=== PATIENT | male | born 1970 | race African-American/Black ===

== ENCOUNTER 2024-08-22 08:16 | Inpatient (IN) | payer MEDICAID ==
[~2024-08-22] VITALS: Ht 190.5 cm; Wt 111.3 kg
[2024-08-22] VITALS (9 sets, daily range): BP systolic 131–151; BP diastolic 98–119; PULSE 65–95; RESP 14–25; TEMP 97.3–97.7; O2SAT 92–98
--- NOTE | 2024-08-22 08:42 | ED.PDOC ---
SOB-HPI HPI Comments 53 year old male presents to the ED with a chief complaint of shortness of breath onset 1 month. PMHx HTN, not on any medication. Patient states he has been experiencing shortness of breath for the past month, worse when laying down. Last night patient began experiencing chest tightness, radiates to back as well as sweats, cough with green phlegm. Was seen at Dr[facility] walk in clinic in February 2024, was diagnosed with HTN, given medication with no refill. Denies nausea, vomiting, diarrhea, headache, cough, congestion, dizziness. No other symptoms or other modifying factors present at this time. Chief Complaint: Shortness of Breath Time Seen by MD: 08:40 Reviewed notes: Medications, Allergies Information Source: Patient Mode of Arrival: Ambulatory Severity: Moderate Timing: Months Duration: Since onset Context: At Rest PE Risk Factors: None History of: None Prehospital treatment: None Modifying Factors: Nothing Associated Signs and Symptoms: Chest Pain Quality: Tightness Radiation: Back Location: Chest (L) If cough with SOB: Productive, Green Past Medical History PAST MEDICAL HISTORY: HTN Surgical History: Denies all surgeries Family History Family History: Reviewed,noncontributory to illness, No family hx of Cancer, No family hx of DM, No family hx of Heart isaias, No family hx of HTN, No family hx ofKidney isaias, No family hx of Liver isaias, No family hx of Lung isaias, No family hx of Stroke Social History Smoker: Quit Less Than 1 Year, Cigarettes Alcohol: Denies ETOH Use Drugs: Denies Drug Use Lives In: Home Constitutional: reports: sweats; denies: chills, diaphoresis, fatigue, fever, malaise, weakness, others EENTM: denies: blurred vision, double vision, ear bleeding, ear discharge, ear drainage, ear pain, ear ringing, eye pain, eye redness, hearing loss, mouth pain, mouth swelling, nasal discharge, nose bleeding, nose congestion, nose pain, photophobia, tearing, throat pain, throat swelling, voice changes, others Respiratory: reports: cough, shortness of breath; denies: hemoptysis, orthopnea, SOB at rest, SOB with excertion, stridor, wheezing, others Cardiovascular: reports: chest pain; denies: dizzy spells, diaphoresis, Dyspnea on exertion, edema, irregular heart beat, left arm pain, lightheadedness, palpitations, PND, syncope, others Gastrointestinal: denies: abdomen distended, abdominal pain, blood streaked bowels, constipated, diarrhea, dysphagia, difficulty swallowing, hematemesis, melena, nausea, poor appetite, poor fluid intake, rectal bleeding, rectal pain, vomiting, others Genitourinary: denies: burning, dysuria, flank pain, frequency, hematuria, incontinence, penile discharge, penile sore, pain, testicle pain, testicle swelling, urgency, others Neurological: denies: dizziness, fainting, headache, left sided numbness, left sided weakness, numbness, paresthesia, pre-existing deficit, right sided numbness, right sided weakness, seizure, speech problems, tingling, tremors, weakness, others Musculoskeletal: reports: back pain; denies: gout, joint pain, joint swelling, muscle pain, muscle stiffness, neck pain, others Integumetry: denies: bruises, change in color, change in hair/nails, dryness, laceration, lesions, lumps, rash, wounds, others Allergic/Immunocompromised: denies: Difficulty Healing, Frequent Infections, Hives, Itching, others Hematologic/Lymphatic: denies: anemia, blood clots, easy bleeding, easy bruising, swollen glands, others Endocrine: denies: excessive hunger, excessive sweating, excessive thirst, excessive urination, flushing, intolerance to cold, intolerance to heat, unexplained weight gain, unexplained weight loss, others Psychiatric: denies: anxiety, bipolar disorder, depression, hopeless, panic disorder, schizophrenia, sleepless, suicidal, others All Other Systems: Reviewed and Negative Physical Exam General Appearance: Moderate Distress, Normal, Other (Appears clammy) HEENT: Normal ENT Inspection, Pharynx Normal, TMs Normal Neck: Full Range of Motion, Non-Tender, Normal, Normal Inspection Respiratory: Chest Non-Tender, Lungs Clear, No Accessory Muscle Use, No Respiratory Distress, Normal Breath Sounds Cardiovascular: No Edema, No JVD, No Murmur, No Gallop, Normal Peripheral Pulses, Regular Rate/Rhythm Breast Exam: Deferred Gastrointestinal: No Organomegaly, Non Tender, No Pulsatile Mass, Normal Bowel Sounds, Soft Genitalia: Deferred Pelvic: Deferred Rectal: Deferred Extremities: Other (+1 pitting edema bilateral lower extremeties ) Musculoskeletal : Apperance: Normal Neurologic: Alert, director clinical research II-XII nml as Tested, No Motor Deficits, Normal Affect, Normal Mood, No Sensory Deficits Cerebellar Function: Normal Reflexes: Normal Skin: Dry, Normal Color, Warm Lymphatic: No Adenopathy EKG EKG : Pulse Rate (adult): 102 Cardiac Rhythm: ST Hypertrophy: LVH (with strain) Was a procedure done? Was a procedure done?: No Differential Dx Differential Diagnosis: Anxiety, CHF, Dysrhythmia, Hypertension, Myocardial infarction, Pneumonia, URI X-Ray, Labs, Meds, VS Vital Signs Date Time Temp Pulse Resp B/P (MAP) Pulse Ox O2 Delivery O2 Flow Rate FiO2 08/22/24 10:20 139/103 08/22/24 10:07 82 20 139/103 08/22/24 10:05 82 139/103 08/22/24 09:43 102 08/22/24 09:08 175/131 08/22/24 08:35 102 08/22/24 08:31 Room Air 0 08/22/24 08:31 98.0 107 20 171/117 (135) 96 98.0 Lab Test 08/22/24 10:11 08/22/24 09:00 Range/Units Troponin I High Sensitivity 9065 *H 9386 *H </=54 ng/L White Blood Count 12.9 H 4.4-10.8 10^3/uL Red Blood Count 4.93 4.5-5.90 10^6/uL Hemoglobin 15.7 13.5-17.5 g/dL Hematocrit 46.7 41.0-53.0 % Mean Corpuscular Volume 94.6 80.0-100.0 fL Mean Corpuscular Hemoglobin 31.7 28.0-32.0 pg Mean Corpuscular Hemoglobin Concent 33.5 32.0-36.0 g/dL Red Cell Distribution Width 13.2 11.8-14.3 % Platelet Count 232 140-450 10^3/uL Mean Platelet Volume 10.7 6.9-10.8 fL Neutrophils (%) (Auto) 79.7 37.0-80.0 % Lymphocytes (%) (Auto) 12.9 10.0-50.0 % Monocytes (%) (Auto) 6.5 0.0-12.0 % Eosinophils (%) (Auto) 0.4 0.0-7.0 % Basophils (%) (Auto) 0.5 0.0-2.0 % Neutrophils # (Auto) 10.3 H 1.6-8.6 10 ^3/uL Lymphocytes # (Auto) 1.7 0.4-5.4 10 ^3/uL Monocytes # (Auto) 0.8 0-1.3 10 ^3/uL Eosinophils # (Auto) 0.1 0-0.8 10 ^3/uL Basophils # (Auto) 0.1 0-0.2 10 ^3/uL Nucleated Red Blood Cells 0.0 % Prothrombin Time 11.9 H 9.3-11.8 sec Prothrombin Time INR 1.14 0.9-1.15 Activated Partial Thromboplast Time 31.1 24.5-34.5 SEC Sodium Level 138 136-145 mmol/L Potassium Level 3.8 3.5-5.1 mmol/L Chloride Level 103 98-107 mmol/L Carbon Dioxide Level 23 20-31 mmol/L Anion Gap 12 5-15 Blood Urea Nitrogen 14 9-23 mg/dL Creatinine 1.64 H 0.700-1.30 mg/dL Glomerular Filtration Rate Calc 49 >90 mL/min BUN/Creatinine Ratio 8.5 L 10.0-20.0 Serum Glucose 110 H 74-106 mg/dL Hemoglobin A1c 4.8 <5.7 % A1C Calcium Level 10.9 H 8.7-10.4 mg/dL B-Type Natriuretic Peptide 2337.94 0-100 pg/mL Triglycerides Level 219 H < 150 mg/dL Cholesterol Level 160 < 200 mg/dL LDL Cholesterol 65 < 100 mg/dL HDL Cholesterol 37 L 40-59 mg/dL Thyroid Stimulating Hormone (TSH) 3.20 0.55-4.78 uIU/mL Current Medications Medications (Trade) Dose Ordered Sig/[place] Route Start Time Stop Time Status Last Admin Nitroglycerin (Ntrostat Sublingual) 0.4 mg ONCE ONCE SL 08/22/24 09:00 08/22/24 09:01 DC 08/22/24 09:08 Aspirin 324 mg ONCE ONCE PO 08/22/24 09:00 08/22/24 09:01 DC 08/22/24 09:07 Heparin Sodium (Porcine) 5,000 units ONCE ONCE IV 08/22/24 10:00 08/22/24 10:01 DC 08/22/24 10:06 Metoprolol Tartrate (Lopressor) 2.5 mg ONCE ONCE IV 08/22/24 10:00 08/22/24 10:01 DC 08/22/24 10:05 Morphine Sulfate 4 mg ONCE ONCE IV 08/22/24 10:00 08/22/24 10:01 DC 08/22/24 10:07 [place] [id number] Ph: [phone] DIAGNOSTIC IMAGING Diagnostic Imaging Report : [id number] Signed PATIENT: ELIDA NUÑEZ ACCT: [id number] UNIT: [id number] : 1970 LOC: OVERFLOW ROOM / BED: [address] [place] [address] AGE / SEX: 53 / M ADM STATUS: ADM IN SERVICE 0849 ORDERING PHYSICIAN: BUBBA ALCANTARA MD PROCEDURE(s): CXR1 - CHEST XRAY 1 VIEW REASON: pulm congestion ORDER NUMBER(s): [id number], ACCESSION NUMBER(s): [id number] CHEST RADIOGRAPH Indication: pulm congestion Technique: Single frontal view of the chest was obtained Comparison: None FINDINGS: The cardiac silhouette is enlarged. The lungs demonstrate perihilar airspace opacities. The pulmonary vasculature is prominent. There is no pleural effusion.. There is no pneumothorax. IMPRESSION: 1. Cardiomegaly with pulmonary vascular congestion and bilateral perihilar airspace opacities. ATED BY: ABBY MATA MD DICTATED DATE/TIME: 08/22/24 1126 SIGNED BY: ABBY MATA MD SIGNED DATE/TIME: 08/22/24 112 CC: 53-year-old male presents here with orthopnea like symptoms and chest discomfort pain on my evaluation he appears clammy and is reporting chest tightness. This time EKG demonstrates LVH pattern with strain. Troponin has been ordered including a BNP. First troponin is above 9000. I immediately contacted circular clerk and spoke to Dr. Alonso Gupta was also very concerned given his ongoing chest discomfort and the troponin. Recommended patient be given aspirin and heparin 5000 mg bolus IV which I have done. He also advised to keep a close eye on him and he will be taking him to the laboratory technician shortly however if his symptoms worsen he would be taken to the laboratory technician immediately. His blood pressure was also found to be extremely high and he was given nitroglycerin sublingual initially which did not improve much and was then given Lopressor. pain was controlled with morphine IV. Patient was given nitroglycerin and was closely monitored by myself and nursing staff. At this time he remained stable while in the ER and was taken for cardiac catheterization. Time of 1ST Reevaluation: 09:10 Reevaluation 1ST: Unchanged Patient Education/Counseling: Diagnosis, Treatment, Prognosis, Need For Follow Up Family Education/Counseling: No Family Present Departure 1 Departure Time of Disposition: 09:00 Impression: Primary Impression: NSTEMI (non-ST elevated myocardial infarction) Additional Impression: Pulmonary vascular congestion Disposition: ADMITTED INPATIENT Condition: Guarded Critical Care Note Critical Care Time?: Yes (55 min-critical care time only) Critical care comment: Patient was seen immediately by myself upon his arrival to the ER given his chest discomfort and clamminess to his face. Patient required immediate assessment by myself due to impending cardiac deterioration. Patient required multiple re-evaluations during his ED stay. Time was spent re-evaluating the patient, reassessing his status, reviewing lab work, speaking to Dr. Gupta the circular clerk, speaking to nursing staff evaluating multiple EKGs. Stability Stability form required: No Heart Score Heart Score: Heart Score Response (Comments) Value History Highly Suspicious [address]-Deviation 2 Age 45-64 1 Risk Factors >3 or Hx ASHD 2 Troponin >3 x's Normal limit 2 Total 9 I personally scribed for BUBBA ALCANTARA MD ([email or web address]) on 08/22/24 at 09:43. Electronically submitted by Jerica Lacy ([email or web address]). I personally scribed for BUBBA ALCANTARA MD ([email or web address]) on 08/22/24 at 09:44. Electronically submitted by Jerica Lacy ([email or web address]). I personally scribed for BUBBA ALCANTARA MD ([email or web address]) on 08/22/24 at 11:42. Electronically submitted by Jerica Lacy ([email or web address]). BUBBA ALCANTARA MD August 22, 2024 08:42
--- NOTE | 2024-08-22 08:46 | ECG ---
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
[2024-08-22] MEDS: ASPirin 81 mg TAB PO ONE (09:07)
[2024-08-22] MEDS: NITROGLYCERIN 0.4 MG SL TAB SL ONE (09:08)
[2024-08-22 09:18] LABS: Basophils # (auto) 0.1 10 ^3/uL (0-0.2); Basophils % (auto) 0.5 % (0.0-2.0); Eosinophils # (auto) 0.1 10 ^3/uL (0-0.8); Eosinophils % (auto) 0.4 % (0.0-7.0); Hematocrit 46.7 % (41.0-53.0); Hemoglobin 15.7 g/dL (13.5-17.5); Lymphocytes # (auto) 1.7 10 ^3/uL (0.4-5.4); Lymphocytes % (auto) 12.9 % (10.0-50.0); Mean Corpuscular Hemoglobin 31.7 pg (28.0-32.0); Mean Corpuscular Hgb Conc. 33.5 g/dL (32.0-36.0); Mean Corpuscular Volume 94.6 fL (80.0-100.0); Monocytes # (auto) 0.8 10 ^3/uL (0-1.3); Monocytes % (auto) 6.5 % (0.0-12.0); Neutrophils # (auto) 10.3 10 ^3/uL (1.6-8.6); Neutrophils % (auto) 79.7 % (37.0-80.0); Platelet Count (auto) 232 10^3/uL (140-450); Red Blood Cells 4.93 10^6/uL (4.5-5.90); Red Cell Distribution Width 13.2 % (11.8-14.3); White Blood Cell 12.9 10^3/uL (4.4-10.8)
[2024-08-22 09:23] LABS: Chloride 103 mmol/L (98-107); Potassium 3.8 mmol/L (3.5-5.1); Sodium 138 mmol/L (136-145)
[2024-08-22 09:24] LABS: Anion Gap 12 (5-15); Carbon Dioxide 23 mmol/L (20-31)
[2024-08-22 09:29] LABS: BUN/Creatinine Ratio 8.5 (10.0-20.0); Blood Urea Nitrogen 14 mg/dL (9-23)
[2024-08-22 09:38] LABS: Calcium 10.9 mg/dL (8.7-10.4); Glucose 110 mg/dL (74-106)
[2024-08-22] MEDS: METOPROLOL TARTRATE 1MG/1ML-5ML VIAL IV ONE (10:05)
[2024-08-22] MEDS: HEPARIN SODIUM (PORCINE) 5000 UNITS/ML 1ML VIAL IV ONE (10:06)
[2024-08-22] MEDS: MORPHINE SULFATE 4 MG/ML SYR/VIAL IV ONE (10:07)
[2024-08-22 10:15] LABS: INR 1.14 (0.9-1.15); Partial Thromboplastin Time 31.1 SEC (24.5-34.5); Prothrombin Time 11.9 sec (9.3-11.8)
[2024-08-22] MEDS ORDERED: MORPHINE SULFATE INJ 2 MG/ml SYRG IV PRN ×4 (10:45→19:15)
[2024-08-22] MEDS ORDERED: NITROGLYCERIN 0.4 MG SL TAB SL PRN ×2 (10:45→16:45)
[2024-08-22 10:55] LABS: Triglycerides 219 mg/dL (< 150)
[2024-08-22 10:56] LABS: LDL Cholesterol 65 mg/dL (< 100)
[2024-08-22 10:57] LABS: Cholesterol 160 mg/dL (< 200); HDL Cholesterol 37 mg/dL (40-59)
--- NOTE | 2024-08-22 11:01 | DVHHP2 ---
History of Present Illness Reason for Visit: Chest pain, shortness of breath History of Present Illness The patient is a 53-year-old male presenting to the emergency room with reports of having chest discomfort and shortness of breath. The patient states that with the past several months he has had episodes with PND, orthopnea, as was decrease in normal activity level secondary to shortness of breath. The patient states that yesterday after eating a hamburger, he had 10/10 pain, described as burning across his chest, subsequently followed with nausea and vomiting. Today, the patient has persistent chest pain that is radiating to his back, which was relieved by 0.4 mg of sublingual nitroglycerin. At the time of assessment, the patient's pain continues to be evident, although much improved, noted to be a 3/10. Patient has already been assessed by Cardiology, for which he is to undergo left heart catheterization in the next couple hours. Patient has received loading dose of aspirin 324 mg p.o., as well as a bolus of heparin. 12 lead ECG reviewed without any noted ST changes or elevations. Troponin was found to be elevated at 9386. Past Medical History Patient denies having any past medical history or taking any prescribed medications. Past Surgical History Denies having any previous surgeries. Family History: Cancer (Specified cancer with father) Smoke: Quit (Patient quit smoking approximately three months ago, but states a pack year of 35) ALCOHOL: occassional Drugs: Marijuana (Patient states he stopped smoking marijuana 02/28) Lives: with Family Review of Systems Constitutional: Yes: Weakness ENT: No: Ear pain, Ear discharge, Nose pain, Nose discharge, Nose congestion, Mouth pain, Mouth swelling, Throat pain, Throat swelling, Other Respiratory: Shortness of breath, SOB with excertion Cardiovascular: Chest Pain Gastrointestinal: No: Nausea, Vomiting, Abdominal Pain, Diarrhea, Constipation, Melena, Hematochezia, Other Genitourinary: No Dysuria, No Frequency, No Incontinence, No Hematuria, No Retention, No Other Musculoskeletal: No: other, neck pain, shoulder pain, arm pain, back pain, hand pain, leg pain, foot pain Skin: No: Rash, Lesions, Jaundice, Bruising, Other Neurological: No: Weakness, Numbness, Incoordination, Change in speech, Confusion, Seizures, Other Allergies: Coded Allergies: NO KNOWN ALLERGIES (Unverified , 08/22/24) Medications Current Medications Medications Dose Ordered Sig/[place] Route Start Time Stop Time Status Last Admin Dose Admin Aspirin 81 mg DAILY PO 08/23/24 10:00 UNV Atorvastatin Calcium 40 mg HS PO 08/22/24 22:00 UNV Sodium Chloride 1,000 ml @ 100 mls/hr Q10H IV 08/22/24 10:45 UNV Nitroglycerin 0.4 mg Q5MINP PRN SL 08/22/24 10:45 UNV Morphine Sulfate 2 mg Q30M PRN IV 08/22/24 10:45 UNV Metoprolol Tartrate 25 mg BID PO 08/22/24 22:00 UNV Aspirin 81 mg DAILY PO 08/23/24 10:00 UNV Exam Vital Signs Vital Signs Date Time Temp Pulse Resp B/P (MAP) Pulse Ox O2 Delivery O2 Flow Rate FiO2 08/22/24 10:20 139/103 08/22/24 10:07 82 20 08/22/24 08:31 Room Air 0 08/22/24 08:31 98.0 96 98.0 General Appearance: Alert, Oriented X3, Cooperative, moderate distress HEENT: PERRLA Respiratory: Clear to auscultation, Normal air movement Cardiovascular: Normal S1, Normal S2 Abdominal: Normal bowel sounds, Soft, No tenderness, No hepatospenomegaly, No masses Extremities: No clubbing, No edema, Normal pulses Psych/Mental Status: Mental status NL, Mood NL Labs/Xrays Labs Test 08/22/24 10:11 08/22/24 09:00 Range/Units Troponin I High Sensitivity 9065 *H </=54 ng/L White Blood Count 12.9 H 4.4-10.8 10^3/uL Red Blood Count 4.93 4.5-5.90 10^6/uL Hemoglobin 15.7 13.5-17.5 g/dL Hematocrit 46.7 41.0-53.0 % Mean Corpuscular Volume 94.6 80.0-100.0 fL Mean Corpuscular Hemoglobin 31.7 28.0-32.0 pg Mean Corpuscular Hemoglobin Concent 33.5 32.0-36.0 g/dL Red Cell Distribution Width 13.2 11.8-14.3 % Platelet Count 232 140-450 10^3/uL Mean Platelet Volume 10.7 6.9-10.8 fL Neutrophils (%) (Auto) 79.7 37.0-80.0 % Lymphocytes (%) (Auto) 12.9 10.0-50.0 % Monocytes (%) (Auto) 6.5 0.0-12.0 % Eosinophils (%) (Auto) 0.4 0.0-7.0 % Basophils (%) (Auto) 0.5 0.0-2.0 % Neutrophils # (Auto) 10.3 H 1.6-8.6 10 ^3/uL Lymphocytes # (Auto) 1.7 0.4-5.4 10 ^3/uL Monocytes # (Auto) 0.8 0-1.3 10 ^3/uL Eosinophils # (Auto) 0.1 0-0.8 10 ^3/uL Basophils # (Auto) 0.1 0-0.2 10 ^3/uL Nucleated Red Blood Cells 0.0 % Prothrombin Time 11.9 H 9.3-11.8 sec Prothrombin Time INR 1.14 0.9-1.15 Activated Partial Thromboplast Time 31.1 24.5-34.5 SEC Sodium Level 138 136-145 mmol/L Potassium Level 3.8 3.5-5.1 mmol/L Chloride Level 103 98-107 mmol/L Carbon Dioxide Level 23 20-31 mmol/L Anion Gap 12 5-15 Blood Urea Nitrogen 14 9-23 mg/dL Creatinine 1.64 H 0.700-1.30 mg/dL Glomerular Filtration Rate Calc 49 >90 mL/min BUN/Creatinine Ratio 8.5 L 10.0-20.0 Serum Glucose 110 H 74-106 mg/dL Calcium Level 10.9 H 8.7-10.4 mg/dL B-Type Natriuretic Peptide 2337.94 0-100 pg/mL Assessment/Plan Assessment/Plan Impression: -NSTEMI type 1 -hypertensive crisis -history of nicotine and marijuana use -cardiomegaly -obesity Plan: -admit to step-down ICU -cardiology consultation: Plans for left heart catheterization -ACS protocol with aspirin, beta deshaun, sublingual nitroglycerin as needed. If patient continues to have persistent chest pain, we will consider Tridil drip -continue current antihypertensives -echocardiogram -serial troponin -check A1c, lipid panel, UDS Critical care time spent with patient discussing and formulating plan of care: 40 minutes. This does not include time spent performing procedures. This medical document was created using an electronic medical record system with [employer] computerized dictation system. Although this document has been carefully reviewed, there may still be some phonetic and typographical errors. These areas are purely typographical due to imperfections of the software programs, and do not reflect any compromise in the patient's medical care. Plan discussed with: Patient, Other (RN) My Orders Orders - ISHMAEL BETANCUR NP Procedure Category Date Status Time Admit ADMIT 08/22/24 Transmitted 10:42 Nitroglycerin PHA 08/22/24 Logged Sublingual (Ntrostat 10:45 Morphine Sulfate PHA 08/22/24 Logged Injection 10:45 Stat Ekg For Chest HEIDI 08/22/24 In Process Pain 10:42 Notify Md Of Changes HEIDI 08/22/24 In Process From Base 10:42 Fashion Buyer For [facility] 08/22/24 In Process 24 Hours 10:42 Emergency Dysrhythmia [facility] 08/22/24 In Process Protocol 10:42 Rhythm Strips Once [facility] 08/22/24 In Process Every Shift 10:42 Oxygen By Nasal RT 08/22/24 Transmitted Cannula 10:42 Metoprolol Tartrate PHA 08/22/24 Logged Tablet (Lopressor Ta 22:00 Aspirin Enteric PHA 08/23/24 Logged Coated Tablet 10:00 Cardiac DIET 08/22/24 Transmitted Diet-2gna,Lofat,Lochol Dinner Lipid Panel LAB 08/22/24 Logged 10:42 Hemoglobin A1c LAB 08/22/24 Verified 10:50 Complete Blood Count LAB 08/23/24 Verified 04:00 Drug Screen LAB 08/22/24 Verified 10:50 Date of Service: August 22, 2024 Billing Provider: ISHMAEL BETANCUR NP Common Visit Codes: [id number] CARE 30-74 MIN ISHMAEL BETANCUR NP August 22, 2024 11:01
--- NOTE | 2024-08-22 11:02 | DVHINCON2 ---
Date Seen: August 22, [address] Butterfield Reason for Consultation NSTEMI History of Present Illness This 53-year-old male patient with past medical history of hypertension and tobacco use, presents in the ED with a chief complaint of shortness of breath. The patient reports progressive shortness of breath for the past month when episodes of CP started last night as he was eating dinner. The patient describes as burning chest pain nonradiating, and is associated with shortness of breath, nausea and vomiting for which prompted him to visit the emergency department. The patient denies fever, dizziness, diaphoresis, chest palpitations, dyspnea, or orthopnea. In the emergency department the patient undergone a 12 lead ECG revealing normal sinus rhythm with no acute ST elevation, initial troponin and BNP with significant elevation. The patient denies history of CAD, IL, or congestive heart failure. Past Medical History Hypertension Past Surgical History Denies Family History Reviewed, non-contributory to the management of this case. Social History Tobacco use Denies illicit drug or ETOH abuse Allergies: Coded Allergies: NO KNOWN ALLERGIES (Unverified , 08/22/24) Review of Systems Constitutional: No symptom reported Ears, Nose, & Throat: No symptom reported Eyes: No symptom reported Neurological: No symptoms reported Pulmonary/Respiratory: Shortness of breath Cardiovascular: Chest pain Gastrointestinal: No symptom reported Genitourinary: No symptom reported Musculoskeletal: No symptom reported Skin: No symptom reported Psychiatric: No symptom reported Endocrine: No symptom reported Hematologic/Lymphatic: No symptom reported Vital Signs Vital Signs Date Time Temp Pulse Resp B/P (MAP) Pulse Ox O2 Delivery O2 Flow Rate FiO2 08/22/24 10:20 139/103 08/22/24 10:07 82 20 08/22/24 08:31 Room Air 0 08/22/24 08:31 98.0 96 98.0 Physical Exam INITIAL VITAL SIGNS: Reviewed by me GENERAL: Alert and interactive. No acute distress. HEAD: Head is normocephalic and atraumatic. EYES: EOMI, PERRL. No scleral icterus. No conjunctival injection. ENT: Moist mucous membranes. NECK: Supple, No masses, Full range of motion. RESPIRATORY: No tachypnea. Clear breath sounds bilaterally. No wheezing, rales, rhonchi. CV: Regular rate and rhythm. No murmurs, no edema, no dyspnea GI/: Active bowel sounds, soft, nondistended, nontender. No guarding. No rebound. No masses. No CVA tenderness. INTEGUMENTARY: Warm and dry. No obvious rashes. NEUROLOGIC: Alert and oriented. Face is symmetric. Speech is normal. Moves all extremities equally. Labs/Diagnostic Data Labs Test 08/22/24 10:11 08/22/24 09:00 Range/Units White Blood Count 12.9 H 4.4-10.8 10^3/uL Red Blood Count 4.93 4.5-5.90 10^6/uL Hemoglobin 15.7 13.5-17.5 g/dL Hematocrit 46.7 41.0-53.0 % Mean Corpuscular Volume 94.6 80.0-100.0 fL Mean Corpuscular Hemoglobin 31.7 28.0-32.0 pg Mean Corpuscular Hemoglobin Concent 33.5 32.0-36.0 g/dL Red Cell Distribution Width 13.2 11.8-14.3 % Platelet Count 232 140-450 10^3/uL Mean Platelet Volume 10.7 6.9-10.8 fL Neutrophils (%) (Auto) 79.7 37.0-80.0 % Lymphocytes (%) (Auto) 12.9 10.0-50.0 % Monocytes (%) (Auto) 6.5 0.0-12.0 % Eosinophils (%) (Auto) 0.4 0.0-7.0 % Basophils (%) (Auto) 0.5 0.0-2.0 % Neutrophils # (Auto) 10.3 H 1.6-8.6 10 ^3/uL Lymphocytes # (Auto) 1.7 0.4-5.4 10 ^3/uL Monocytes # (Auto) 0.8 0-1.3 10 ^3/uL Eosinophils # (Auto) 0.1 0-0.8 10 ^3/uL Basophils # (Auto) 0.1 0-0.2 10 ^3/uL Nucleated Red Blood Cells 0.0 % Prothrombin Time 11.9 H 9.3-11.8 sec Prothrombin Time INR 1.14 0.9-1.15 Activated Partial Thromboplast Time 31.1 24.5-34.5 SEC Sodium Level 138 136-145 mmol/L Potassium Level 3.8 3.5-5.1 mmol/L Chloride Level 103 98-107 mmol/L Carbon Dioxide Level 23 20-31 mmol/L Anion Gap 12 5-15 Blood Urea Nitrogen 14 9-23 mg/dL Creatinine 1.64 H 0.700-1.30 mg/dL Glomerular Filtration Rate Calc 49 >90 mL/min BUN/Creatinine Ratio 8.5 L 10.0-20.0 Serum Glucose 110 H 74-106 mg/dL Calcium Level 10.9 H 8.7-10.4 mg/dL B-Type Natriuretic Peptide 2337.94 0-100 pg/mL Assessment NSTEMI, possible Acute IL Acute coronary syndrome Cardiomegaly Hypertension Acute kidney injury Tobacco use Obesity Plan/Recommendation (Dr. Gupta): Given the patient's clinical presentation, significant elevation of cardiac enzymes, heart score 5, PEYTON score 3, suspecting acute IL, the patient may benefit from an urgent coronary angiogram with left heart catheterization. The procedure was discussed with the patient in full detail including risks and benefits. Risks include but are not limited to bleeding, contrast-induced nephropathy, stroke, and even . In the meantime, keep the patient NPO, continue with current medications/ACS protocol, we will obtain echocardiogram, check lipid panel, A1c and TSH, close cardiac monitoring. Smoking cessation counseled This medical document was created using an electronic medical record system with voice recognition software and computerized dictation system. Although this document has been carefully reviewed, there might still be some phonetic and typographical errors. Occasional wrong-word or ``sound-alike substitutions may have occurred due to the inherent limitations of voice recognition software. These areas are purely typographical due to imperfections of the software programs and do not reflect any compromise in the patient's medical care. Please read the chart carefully and recognize, using context, where these substi tutions have occurred. Plan discussed with: Patient Plan discussed with: Patient NYHA Physical activity limitations: Class2(Slight)fatigue,sob Date of Service: August 22, 2024 Billing Provider: CAN GUPTA Sr., MD Cardiology Common Codes: CONSULT ONLY Cardiology Consultation Codes: 30647-EKVOETSNP CONSULT <60MIN KEL RAMIREZ CUTTER OPERATOR BRICK August 22, 2024 11:02
[2024-08-22] MEDS: SODIUM CHLORIDE 0.9% 1,000 ML IV SCH (11:14)
--- NOTE | 2024-08-22 11:28 | DVH ---
CHEST RADIOGRAPH Indication: pulm congestion Technique: Single frontal view of the chest was obtained Comparison: None FINDINGS: The cardiac silhouette is enlarged. The lungs demonstrate perihilar airspace opacities. The pulmonary vasculature is prominent. There is no pleural effusion.. There is no pneumothorax. IMPRESSION: 1. Cardiomegaly with pulmonary vascular congestion and bilateral perihilar airspace opacities.
[2024-08-22] MEDS: METOPROLOL TARTRATE 25 MG TAB PO SCH (12:05)
--- NOTE | 2024-08-22 13:55 | DVHSR ---
APPROVED REPORT EXAM: Two-dimensional and M-mode echocardiogram with Doppler and color Doppler. Blood Pressure: 139/103 mmHg INDICATION NSTEMI RISK FACTORS Height: 73, Weight: 246 DIMENSIONS LVDd7.1 (3.8-5.7cm)LA (2D)5.6 (1.9-4.0cm)Aortic Root4.7 (2.0-3.7cm) LVDs6.4 (2.5-4.0cm)LA (MM) (1.9-4.0cm)Aortic Cusp Exc2.4 (1.5-2.0cm) EF (%) 20.0 (55-70%)Rt. Atrium5.6 (1.9-4.0cm)Asc. Aorta cm IVSd1.3 (0.7-1.1cm)RV (D) (1.8-2.4cm) PWd1.6 (0.7-1.1cm) Mitral Valve MitralMitral Stenosis E wave1.00m/sMV Mean GR.mmHg A wavem/sMV Peak GR.100mmHg E/A ratio0.02D MVAcm2 Aortic Valve Aortic ValveAortic Stenosis V10.65m/Adela Mean GR.2mmHg V20.98m/Adela Peak GR.4mmHg LVOT Diameter2.5 (1.8-2.4cm)Doppler AVA3.25cm2 Pulmonic Valve V20.75m/s Tricuspid Valve TR Velocity3.22m/s [id number] Conclusion Technically good study. Sinus rhythm. Biventricular and biatrial enlargement. Concentric LVH. Aortic root enlargement. Valves are normal. Left ventricular systolic performance is diminished. EF is approximately 20% with severe global hypo kinesis underlying left ventricular dilatation/cardiomyopathy. RV function is moderately diminished. There is moderate tricuspid regurgitation. Mild pulmonic insufficiency. [id number]-[id number] mitral ins ufficiency No pericardial effusion masses or vegetations.
--- NOTE | 2024-08-22 16:50 | DVHOP2 ---
Operative Report - 2 Report Details Date: 08/22/24 Preop Diagnosis: Acute coronary syndrome Postop Diagnosis: Nonischemic dilated cardiomyopathy Surgeon: Can Gupta MD Anesthesiologist: Conscious sedation Anesthesia: Mac, Local Consent: The patient was informed of the risks and benefits of the procedure. These include but are not limited to complications of anesthesia, postoperative infection, incomplete relief of symptoms, recurrence of symptoms, damage to blood vessels, nerves and tendons, deep venous thrombosis, pulmonary embolism and possible need for repeat surgery in the future. Complications: No complications Findings: Dilated nonischemic cardiomyopathy. No coronary artery disease Indications for Surgery: Chest pain. Abnormal troponins. Acute coronary syndrome Name of Procedure Performed Left heart catheterization. Bilateral cine coronary angiography. Left ventriculography Procedure Details Procedure Details: Prior local anesthesia with 2% lidocaine to the right wrist and full informed consent obtained patient was prepped and draped in usual fashion followed by placement of a 3.5 EBU guiding catheter were then a six [place] sheath. Ventriculography and cannulation of both right and left coronary ostia ensued. Hemodynamics: Aortic blood pressure was 110/70 end-diastolic pressure was 35. There was no gradient across the aortic valve on pullback. Coronary anatomy: The RCA is a large vessel is nondominant. It ends distally in the AV groove with an acute marginal branch that is normal. The left main is large and normal. Left anterior descending is a large vessel it is normal in its proximal mid and distal segments. Diagonals are free of significant disease. Circumflex is large with two marginals free of significant disease. Ventriculography in the RUBY projection shows an EF of 10-15% with notably enlarged left ventricle and severe global cardiomyopathy Recommendations: Continue medical therapy. Risk factor modification to continue. Sodium and fluid restriction. Salt restriction. Entresto spironolactone and beta-blockers as tolerated. Suggest life vest. Condition Fair Disposition Still a Patient Date of Service: August 22, 2024 Billing Provider: CAN GUPTA Sr., MD Cardiology Common Codes: 80411-SIGPNOK INP/OBS CARE (High) Cardiology Procedure Codes: 62313-RALT ADD COR ART/BRNCH/GRFT, 16292-DSBZ HEART CATH W/INTRA INJ CAN GUPTA Sr., MD August 22, 2024 16:50
[2024-08-22] MEDS: HEPARIN SODIUM (PORCINE) 5000 UNITS/ML 1ML VIAL ONE (17:24)
[2024-08-22] MEDS: MIDAZOLAM HCL 2MG/2ML 2ml VIAL (1mg/ml) ONE (17:24)
[2024-08-22] MEDS: VERAPAMIL 2.5MG/ML INJ 2ML VIAL IV ONE (17:24)
[2024-08-22] MEDS: fentaNYL CITRATE 100 MCG/2 ML VL ONE (17:24)
[2024-08-22] MEDS: ANGIOMAX 250 MG VIAL IV ONE (17:24)
[2024-08-22] MEDS: FUROSEMIDE 20 MG/2 ML VIAL ONE (17:25)
[2024-08-22] MEDS: SODIUM CHL 0.9% 0 ML ONE (17:25)
[2024-08-22] MEDS: LIDOCAINE 2%HCL (LOCAL ANESTH.) INJ 20ML MDV ONE (17:25)
[2024-08-22] MEDS: IODIXANOL 320MG/ML 100ML BTL IV ONE (17:25)
[2024-08-22] MEDS ORDERED: hydrALAZINE HCL 20 MG/ML VL IV PRN (18:45)
[2024-08-22] MEDS: SACUBITRIL-VALSARTAN 24mg/26mg TAB PO SCH (21:51)
[2024-08-22] MEDS: CARVEDILOL 3.125 MG TAB PO SCH (21:53)
[2024-08-22] MEDS: ATORVASTATIN 20 MG TAB PO SCH (21:53)
[2024-08-22] MEDS ORDERED: ATORVASTATIN 20 MG TAB PO SCH (22:00)
[2024-08-23] VITALS (9 sets, daily range): BP systolic 118–129; BP diastolic 85–96; PULSE 58–84; RESP 18–24; TEMP 97.4–98.3; O2SAT 93–100
[2024-08-23 06:56] LABS: Basophils # (auto) 0.1 10 ^3/uL (0-0.2); Basophils % (auto) 0.6 % (0.0-2.0); Eosinophils # (auto) 0.1 10 ^3/uL (0-0.8); Eosinophils % (auto) 0.6 % (0.0-7.0); Hematocrit 42.9 % (41.0-53.0); Hemoglobin 14.7 g/dL (13.5-17.5); Lymphocytes # (auto) 1.9 10 ^3/uL (0.4-5.4); Lymphocytes % (auto) 21.3 % (10.0-50.0); Mean Corpuscular Hemoglobin 31.9 pg (28.0-32.0); Mean Corpuscular Hgb Conc. 34.2 g/dL (32.0-36.0); Mean Corpuscular Volume 93.4 fL (80.0-100.0); Monocytes # (auto) 0.8 10 ^3/uL (0-1.3); Monocytes % (auto) 8.9 % (0.0-12.0); Neutrophils # (auto) 6.2 10 ^3/uL (1.6-8.6); Neutrophils % (auto) 68.6 % (37.0-80.0); Platelet Count (auto) 179 10^3/uL (140-450); Red Cell Distribution Width 13.2 % (11.8-14.3)
[2024-08-23] MEDS ORDERED: ASPirin 81 mg TAB PO SCH (10:00)
[2024-08-23] MEDS ORDERED: ASPirin-EC 81 mg tab PO SCH (10:00)
[2024-08-23] MEDS: SPIRONOLACTONE 25 MG TAB PO SCH (10:21)
[2024-08-23] MEDS: EMPAGLIFLOZIN 10 MG TAB PO SCH (10:22)
[2024-08-23] MEDS: ASPirin 81 mg TAB PO SCH (10:22)
--- NOTE | 2024-08-23 12:07 | DVHPN2 ---
Consult Progress Note Subjective Other Systems: Patient remains in normal sinus rhythm with depressed T-waves on monitoring coordinator Denies any cardiac symptoms Objective vital signs Vital Sign Date Time Temp Pulse Resp B/P (MAP) Pulse Ox O2 Delivery O2 Flow Rate FiO2 08/23/24 10:23 73 129/92 08/23/24 08:39 97.8 18 95 97.8 08/22/24 20:00 Room Air* 0 21 Total Intake and Output 08/22/24 08/22/24 08/23/24 15:00 23:00 07:00 Intake Total 650 ml Balance 650 ml medications Current Medications Medications Dose Ordered Sig/[place] Route Start Time Stop Time Status Last Admin Dose Admin Sodium Chloride 1,000 ml @ 100 mls/hr Q10H IV 08/22/24 10:45 08/22/24 22:16 100 MLS/HR Metoprolol Tartrate 25 mg BID PO 08/22/24 10:56 08/23/24 10:23 25 MG Sacubitril/ Valsartan 1 tab BID PO 08/22/24 22:00 08/22/24 21:51 1 TAB Carvedilol 3.125 mg Q12HR PO 08/22/24 22:00 08/22/24 21:53 3.125 MG Atorvastatin Calcium 20 mg HS PO 08/22/24 22:00 08/22/24 21:53 20 MG Aspirin 81 mg DAILY PO 08/23/24 10:00 08/23/24 10:22 81 MG Spironolactone 25 mg DAILY PO 08/23/24 10:00 08/23/24 10:21 25 MG Nitroglycerin 0.4 mg Q5MINP PRN SL 08/22/24 16:45 Morphine Sulfate 2 mg Q30M PRN IV 08/22/24 16:45 Empaglifozin 10 mg DAILY PO 08/23/24 10:00 08/23/24 10:22 10 MG Hydralazine HCl 10 mg Q6HP PRN IV 08/22/24 18:45 Morphine Sulfate 2 mg Q4HP PRN IV 08/22/24 19:15 Examination: GENERAL:Normal, LUNGS:Normal, CVS:Normal, NEURO:Normal laboratory and microbiology Laboratory Tests 08/23/24 05:30 08/22/24 09:00 Test 08/22/24 09:00 Range/Units Serum Glucose 110 H 74-106 mg/dL Problem List/Assessment/Plan Problem List/Assessment/Plan Nonischemic dilated cardiomyopathy Hypertensive urgency NSTEMI, type II secondary to above Moderate tricuspid valve regurgitation Biventricular and biatrial enlargement Acute kidney injury History of tobacco use Obesity Plan/recommendations (Dr. Gupta): The patient underwent a coronary angiogram with left heart catheterization on 08/22/2024 which revealed no coronary artery disease. A transthoracic echocardiogram revealed an EF of approximately 20%. We will recommend to initiate guideline directed medical therapy for CHF as tolerated by renal function. Continue with daily weights, strict intake and output, and fluid restriction. The patient will need a LifeVest prior to discharge. Patient educated on the need to follow up with Cardiology in the outpatient setting upon discharge. Patient verbalized understanding. Thank you for allowing us to care for this patient. Please call with any questions or concerns. This medical document was created using an electronic medical record system with voice recognition software and computerized dictation system. Although this document has been carefully reviewed, there might still be some phonetic and typographical errors. Occasional wrong-word or ``sound-alike substitutions may have occurred due to the inherent limitations of voice recognition software. These areas are purely typographical due to imperfections of the software programs and do not reflect any compromise in the patient's medical care. Please read the chart carefully and recognize, using context, where these substitutions have occurred. Plan discussed with: Patient Date of Service: August 23, 2024 Billing Provider: DAX MARINELLI Common Visit Codes: [id number] INP/OBS CARE(HIGH) DAX MARINELLI August 23, 2024 12:07
--- NOTE | 2024-08-23 15:47 | DVHDS2 ---
Discharge Summary Date of Admission August 22, 2024 at 10:42 Date of Discharge: August 23, 2024 Admitting Diagnosis NSTEMI Labs/Diagnostic Data: Laboratory Results Test 08/23/24 05:30 08/22/24 10:11 08/22/24 09:00 White Blood Count 9.0 10^3/uL (4.4-10.8) Red Blood Count 4.60 10^6/uL (4.5-5.90) Hemoglobin 14.7 g/dL (13.5-17.5) Hematocrit 42.9 % (41.0-53.0) Mean Corpuscular Volume 93.4 fL (80.0-100.0) Mean Corpuscular Hemoglobin 31.9 pg (28.0-32.0) Mean Corpuscular Hemoglobin Concent 34.2 g/dL (32.0-36.0) Red Cell Distribution Width 13.2 % (11.8-14.3) Platelet Count 179 10^3/uL (140-450) Mean Platelet Volume 10.4 fL (6.9-10.8) Neutrophils (%) (Auto) 68.6 % (37.0-80.0) Lymphocytes (%) (Auto) 21.3 % (10.0-50.0) Monocytes (%) (Auto) 8.9 % (0.0-12.0) Eosinophils (%) (Auto) 0.6 % (0.0-7.0) Basophils (%) (Auto) 0.6 % (0.0-2.0) Neutrophils # (Auto) 6.2 10 ^3/uL (1.6-8.6) Lymphocytes # (Auto) 1.9 10 ^3/uL (0.4-5.4) Monocytes # (Auto) 0.8 10 ^3/uL (0-1.3) Eosinophils # (Auto) 0.1 10 ^3/uL (0-0.8) Basophils # (Auto) 0.1 10 ^3/uL (0-0.2) Nucleated Red Blood Cells 0.0 % B-Type Natriuretic Peptide 1822.45 pg/mL (0-100) Troponin I High Sensitivity 9065 ng/L (</=54) Prothrombin Time 11.9 sec (9.3-11.8) Prothrombin Time INR 1.14 (0.9-1.15) Activated Partial Thromboplast Time 31.1 SEC (24.5-34.5) Sodium Level 138 mmol/L (136-145) Potassium Level 3.8 mmol/L (3.5-5.1) Chloride Level 103 mmol/L (98-107) Carbon Dioxide Level 23 mmol/L (20-31) Anion Gap 12 (5-15) Blood Urea Nitrogen 14 mg/dL (9-23) Creatinine 1.64 mg/dL (0.700-1.30) Glomerular Filtration Rate Calc 49 mL/min (>90) BUN/Creatinine Ratio 8.5 (10.0-20.0) Serum Glucose 110 mg/dL (74-106) Hemoglobin A1c 4.8 % A1C (<5.7) Calcium Level 10.9 mg/dL (8.7-10.4) Triglycerides Level 219 mg/dL (< 150) Cholesterol Level 160 mg/dL (< 200) LDL Cholesterol 65 mg/dL (< 100) HDL Cholesterol 37 mg/dL (40-59) Thyroid Stimulating Hormone (TSH) 3.20 uIU/mL (0.55-4.78) Other Laboratory Tests 08/23/24 05:30 08/22/24 09:00 Brief Hx & Hospital Course: History of Present Illness The patient is a 53-year-old male presenting to the emergency room with reports of having chest discomfort and shortness of breath. The patient states that with the past several months he has had episodes with PND, orthopnea, as was decrease in normal activity level secondary to shortness of breath. The patient states that yesterday after eating a hamburger, he had 10/10 pain, described as burning across his chest, subsequently followed with nausea and vomiting. Today, the patient has persistent chest pain that is radiating to his back, which was relieved by 0.4 mg of sublingual nitroglycerin. At the time of assessment, the patient's pain continues to be evident, although much improved, noted to be a 3/10. Patient has already been assessed by Cardiology, for which he is to undergo left heart catheterization in the next couple hours. Patient has received loading dose of aspirin 324 mg p.o., as well as a bolus of heparin. 12 lead ECG reviewed without any noted ST changes or elevations. Troponin was found to be elevated at 9386. Course of hospitalization: Patient restarted on ACS protocol. Patient was given loading dose of heparin. He underwent left heart catheterization without any findings of CAD amenable to intervention. Patient was noted to have dilated cardiomyopathy. Ejection fraction was noted to be a 20% on echocardiogram. Long discussion was made with the patient regarding medication lifestyle changes. Patient will be discharged home once cleared by Cardiology and be placed on LifeVest. Patient will be continued on goal-directed medical therapy including beta-deshaun, YESI inhibitor, spironolactone, and Jardiance. Patient will also be prescribed aspirin 81 mg p.o. daily. At this time we will hold off on statin until patient is able to follow a low-sodium, cardiac diet in his own. Patient will follow up with Cardiology as well as a discharge Clinic after discharge. Patient is agreeable with discharge plan. All questions answered. Physical examination General: Alert and Oriented x3. No acute distress. Well-nourished. Obese Eyes: EOMI. Anicteric. HENT: Moist mucous membranes. Lungs: Clear to auscultation bilaterally. No accessory muscle use. Cardiovascular: Regular rate and rhythm. No murmur. No JVD. Abdomen: Soft, non-tender and non-distended. No palpable masses. Extremities: No edema. Non-tender. Skin: No rashes or lesions. Warm. Neurologic: No focal neurological deficits. CN II-XII grossly intact, but not individually tested. Psychiatric: Cooperative. Appropriate mood and affect. Total time spent with patient discussing and formulating plan of care: 35 minutes. This medical document was created using an electronic medical record system with [employer] dictation system. Although this document has been carefully reviewed, there may still be some phonetic and typographical errors. These areas are purely typographical due to imperfections of the software programs, and do not reflect any compromise in the patient's medical care. Consults/Reason for consult Cardiology: NSTEMI Operations or Procedures 08/22/2024: Left heart catheterization Condition at Discharge: Guarded Final Diagnosis/Problems List Nonischemic dilated cardiomyopathy Discharge Disposition: Home Discharge Instruct/Medications Diet: Cardiac 2g Na,low cholest Activity: No Restrictions, As Tolerated Follow Up/Referral: Follow up with Cardiology in 1-2 weeks Medications: Jardiance 10 mg p.o. daily Carvedilol 3.125 mg p.o. b.i.d. Spironolactone 25 mg p.o. daily Entresto one tablet b.i.d. Aspirin 81 mg p.o. daily 36 Discharge Statement: "Patient was advised to return to the ER or call 911 if any headaches, dizziness, shortness of breath, chest pain, abdominal pain, bleeding, fevers, or worsening of medical condition. Patient was counseled about treatment plan, medications, possible side effects, patientverbalized understanding. All questions were answered to the best of my ability. This discharge took greater then 30 minutes in planning, reviewing documentation, counseling the patient, and discussing with other team members." ASSESSMENT ASSESSMENT Assessment Nonischemic dilated cardiomyopathy Date of Service: August 23, 2024 Billing Provider: ISHMAEL BETANCUR NP Common Visit Codes: 42132-HDL/OBS DISCH DAY >30min ISHMAEL BETANCUR NP August 23, 2024 15:47
[2024-08-23] MEDS ORDERED: ASPI1TAB20 PO (15:50)
[2024-08-23] MEDS ORDERED: CARV3.1240 PO (15:50)
[2024-08-23] MEDS ORDERED: SPIR25TA8 PO (15:50)
[2024-08-23] MEDS ORDERED: SACU1TAB PO (15:50)
[2024-08-23] MEDS ORDERED: EMPA1TAB PO (15:50)
[2024-08-23] MEDS ORDERED: SACUBITRIL-VALSARTAN 24mg/26mg TAB PO ONE (22:27)
[2024-08-24 00:44] VITALS: BP 119/91; PULSE 70; RESP 20; TEMP 98; O2SAT 98
[2024-08-24 04:59] VITALS: BP 117/93; PULSE 70; RESP 28; TEMP 97.9; O2SAT 97
[2024-08-24 08:00] VITALS: PULSE 65; PULSE 67; RESP 18; O2SAT 97
[2024-08-24 08:48] VITALS: BP 120/95; PULSE 67; RESP 18; TEMP 97.7; O2SAT 97
--- NOTE | 2024-08-24 09:33 | DVHPN2 ---
Subjective Patient denies any symptoms. Reviewed: Care Plan, H&P, Labs, Medications Changes from previous H/P or p: No Changes ENT: No Ear pain, No Ear discharge, No Nose pain, No Nose discharge, No Nose congestion, No Mouth pain, No Mouth swelling, No Throat pain, No Throat swelling, No Other Cardiovascular: Chest Pain Respiratory: Shortness of breath, SOB with excertion Gastrointestinal: No Nausea, No Vomiting, No Abdominal Pain, No Diarrhea, No Constipation, No Melena, No Hematochezia, No Other Genitourinary: No Dysuria, No Frequency, No Incontinence, No Hematuria, No Retention, No Other Musculoskeletal: No other, No neck pain, No shoulder pain, No arm pain, No back pain, No hand pain, No leg pain, No foot pain Skin: No Rash, No Lesions, No Jaundice, No Bruising, No Other Objective Vitals Vital Signs Date Time Temp Pulse Resp B/P (MAP) Pulse Ox O2 Delivery O2 Flow Rate FiO2 08/24/24 08:48 97.7 67 18 120/95 (103) 97 97.7 08/23/24 20:00 Room Air* 0 21 Intake/Output Intake and Output 08/24/24 07:00 Intake Total 2500 ml Balance 2500 ml Intake Oral 1500 ml IV Total 1000 ml # Voids 5 # Bowel Movements 1 General Appearance: Alert, Oriented X3, Cooperative, No acute distress HEENT: Atraumatic, PERRLA Cardiovascular: Normal S1, Normal S2 Abdomen: Normal bowel sounds, Soft, No tenderness, No hepatospenomegaly Musculoskeletal: Normal sensory function, Normal motor function Extremities: No clubbing, No cyanosis Neuro: Normal gait, Normal speech Psych/Mental Status: Mental status NL, Mood NL Medications Current Medications Medications Dose Ordered Sig/[place] Route Start Time Stop Time Status Last Admin Dose Admin Sodium Chloride 1,000 ml @ 100 mls/hr Q10H IV 08/22/24 10:45 08/24/24 02:54 100 MLS/HR Sacubitril/ Valsartan 1 tab BID PO 08/22/24 22:00 08/23/24 22:48 1 TAB Carvedilol 3.125 mg Q12HR PO 08/22/24 22:00 08/23/24 22:18 3.125 MG Atorvastatin Calcium 20 mg HS PO 08/22/24 22:00 08/23/24 22:18 20 MG Aspirin 81 mg DAILY PO 08/23/24 10:00 08/23/24 10:22 81 MG Spironolactone 25 mg DAILY PO 08/23/24 10:00 08/23/24 10:21 25 MG Nitroglycerin 0.4 mg Q5MINP PRN SL 08/22/24 16:45 Morphine Sulfate 2 mg Q30M PRN IV 08/22/24 16:45 Empaglifozin 10 mg DAILY PO 08/23/24 10:00 08/23/24 10:22 10 MG Hydralazine HCl 10 mg Q6HP PRN IV 08/22/24 18:45 Morphine Sulfate 2 mg Q4HP PRN IV 08/22/24 19:15 Laboratory Results Laboratory Tests 08/22/24 09:00 08/23/24 05:30 Labs and/or images reviewed: Labs reviewed by me, Image(s) reviewed by me Assessment/Plan Assessment/Plan Impression: -NSTEMI type 1 -hypertensive crisis -history of nicotine and marijuana use -cardiomegaly -obesity Plan: Events: Patient was discharged yesterday. Awaiting for LifeVest fitting. Patient tolerating guideline directed medical therapy for CHF. Patient will be discharged once fitted for vest. This was discussed with the patient who is in agreement. -cardiology consultation: Plans for left heart catheterization -ACS protocol with aspirin, beta deshaun, sublingual nitroglycerin as needed. If patient continues to have persistent chest pain, we will consider Tridil drip -continue current antihypertensives -echocardiogram Total time spent with patient discussing and formulating plan of care: 35 minutes. This medical document was created using an electronic medical record system with [employer] dictation system. Although this document has been carefully reviewed, there may still be some phonetic and typographical errors. These areas are purely typographical due to imperfections of the software programs, and do not reflect any compromise in the patient's medical care. Plan discussed with: Patient, Other (RN) My Orders Orders - ISHMAEL BETANCUR NP Procedure Category Date Status Time Discharge DISCHARGE 08/23/24 Transmitted 15:41 Schedule For Dc HEIDI 08/23/24 In Process Clinic F/U 15:41 Date of Service: August 24, 2024 Billing Provider: ISHMAEL BETANCUR NP Common Visit Codes: [id number] INP/OBS CARE(HIGH) ISHMAEL BETANCUR FASHION SHOW DIRECTOR August 24, 2024 09:33
[2024-08-24 11:10] LABS: Alanine Aminotransferase 36 U/L (7-40); Alkaline Phosphatase 96 U/L (46-116); Anion Gap 10 (5-15); Aspartate Aminotransferase 38 U/L (13-40); Bilirubin, Total 1.1 mg/dL (0.2-1.0); Blood Urea Nitrogen 21 mg/dL (9-23); Calcium 9.7 mg/dL (8.7-10.4); Carbon Dioxide 24 mmol/L (20-31); Chloride 106 mmol/L (98-107); Glucose 97 mg/dL (74-106); Potassium 3.5 mmol/L (3.5-5.1); Sodium 140 mmol/L (136-145); Total Protein 7.3 g/dL (5.7-8.2)
[2024-08-24 13:04] VITALS: BP 127/98; PULSE 75; RESP 18; TEMP 97.6; O2SAT 97
== END 2024-08-24 13:40 | disposition home or self-care (01) | DRG 192 ==
LOC: ER 08:16 → OVERFLOW 10:42 → TELE-CENTR 17:34
PROVIDERS: ADMIT Nurse Practitioner Acute Care; ATTEND Nurse Practitioner Acute Care
PROC: 4A023N7 Measurement of Cardiac Sampling and Pressure, Left Heart, Percutaneous Approach (ICD-10-PCS; principal; 2024-08-22)
PROC: B211YZZ Fluoroscopy of Multiple Coronary Arteries using Other Contrast (ICD-10-PCS; 2024-08-22)
PROC: B215YZZ Fluoroscopy of Left Heart using Other Contrast (ICD-10-PCS; 2024-08-22)
DX: I16.0 Hypertensive urgency (principal); I21.A1 Myocardial infarction type 2; I42.0 Dilated cardiomyopathy; N17.9 Acute kidney failure, unspecified; R65.10 Systemic inflammatory response syndrome (SIRS) of non-infectious origin without acute organ dysfunction; I11.9 Hypertensive heart disease without heart failure; E66.9 Obesity, unspecified; I07.1 Rheumatic tricuspid insufficiency; F17.200 Nicotine dependence, unspecified, uncomplicated; Z68.30 Body mass index [BMI] 30.0-30.9, adult; Z79.899 Other long term (current) drug therapy; Z71.6 Tobacco abuse counseling
CPT/HCPCS: 36415; 71045; 80048; 80053; 80061; 83036; 83880; 84443; 84484; 85025; 85610; 85730; 93005; 93306; 93458; 96374; 96375; 99152; 99291; C1887; G0378; J2250; Q9967